=== PATIENT | male | born 1990 | race Caucasian/White ===

== ENCOUNTER 2021-06-12 12:44 | Emergency (ER) | payer OTHER | END 2021-06-12 14:02 | disposition home or self-care (01) | LOC: ERS 12:44 | DX: F41.1 Generalized anxiety disorder (principal); F17.290 Nicotine dependence, other tobacco product, uncomplicated | CPT/HCPCS: 70450; 93005 ==

== ENCOUNTER 2022-05-08 13:56 | Emergency (ER) | payer BC ==
[2022-05-08 14:37] LABS: #Basophils 0.1 thou/uL (0.0-0.2); #Eosinphils 0.3 thou/uL (0.0-0.7); #Lymphocytes 2.5 thou/uL (1.20-3.40); #Neutrophils 7.3 thou/uL (1.40-6.50); %Basophils 0.7 % (0.0-1.0); %Eosinophils 2.4 % (0.0-10.0); %Lymphocytes 22.4 % (21.0-51.0); %Monocytes 8.6 % (0.0-10.0); %Neutrophils 65.9 % (42.0-75.0); Hemoglobin 15.7 g/dL (14.0-18.0); Mean Corpuscular HGB CONC 34.2 g/dL (32.0-36.0); Mean Corpuscular Hemoglobin 29.3 pg (27.0-31.0); Mean Corpuscular Volume 85.8 fL (78.0-98.0); Platelet Count 316 thou/uL (130-400); RBC Distribution Width 11.8 % (11.5-14.5); Red Blood Cell (RBC) Count 5.36 mill/uL (4.70-6.10)
[2022-05-08 14:51] LABS: ALT (SGPT) 75 U/L (8-55); AST (SGOT) 26 U/L (5-34); Albumin 4.2 g/dL (3.5-5.0); Alkaline Phosphatase 46 U/L (40-110); Anion Gap 14 mmol/L (10-20); BUN (Urea Nitrogen) 12 mg/dL (8.9-20.6); Bilirubin, Total 0.7 mg/dL (0.2-1.2); Calc. Creatinine Clearance 0 mL/min (70-130); Calcium 9.1 mg/dL (7.8-10.44); Carbon Dioxide 23 mmol/L (22-29); Chloride 105 mmol/L (98-107); Globulin 2.6 g/dL (2.4-3.5); Glucose 90 mg/dL (70-105); Potassium 4.1 mmol/L (3.5-5.1); Protein, Total 6.8 g/dL (6.0-8.3); Sodium 138 mmol/L (136-145)
[2022-05-08 17:28] LABS: Troponin I Less than 0.010 ng/mL (< 0.028)
== END 2022-05-08 17:39 | disposition home or self-care (01) ==
LOC: ERS 13:56
DX: R07.9 Chest pain, unspecified (principal); I10 Essential (primary) hypertension; F17.220 Nicotine dependence, chewing tobacco, uncomplicated; Z79.899 Other long term (current) drug therapy
CPT/HCPCS: 36415; 71045; 80053; 84484; 85025; 93005